=== PATIENT | female | born 1995 | race Caucasian/White ===

== ENCOUNTER 2018-05-06 00:20 | Outpatient (CLI) | payer BC, MEDICAID ==
[2018-05-06 01:12] LABS: ADD UMIC YES; UR ASCORBIC ACID NEGATIVE (NEGATIVE); UR BILIRUBIN (Dip) NEGATIVE (NEGATIVE); UR BLOOD (Dip) NEGATIVE (NEGATIVE); UR CLARITY CLOUDY (CLEAR); UR COLOR YELLOW (YELLOW); UR GLUCOSE (Dip) NEGATIVE (NEGATIVE); UR KETONES (Dip) NEGATIVE (NEGATIVE); UR LEUKOCYTE ESTERASE (Dip) 3+ Leu/ul (NEGATIVE); UR MUCUS FEW /HPF (NONE SEEN); UR NITRITE (Dip) NEGATIVE (NEGATIVE); UR RBC 1 /HPF (0-5); UR SPECIFIC GRAVITY (Dip) 1.011 (1.003-1.030); UR SQUAMOUS EPITHELIAL CELL FEW /HPF (FEW); UR TOTAL PROTEIN (Dip) NEGATIVE (NEGATIVE); UR UROBILINOGEN (Dip) 1+ mg/dL (NEGATIVE); UR WBC 14 /HPF (0-5)
[2018-05-06] MEDS: HYDROCODONE/APAP (5/325) TAB PO (01:51)
== END 2018-05-06 02:10 | disposition home or self-care (01) ==
LOC: OBT 00:20 → L-D 00:20 → OBT 02:10
DX: O26.893 Other specified pregnancy related conditions, third trimester (principal); Z3A.34 34 weeks gestation of pregnancy
CPT/HCPCS: 76818; 81001

== ENCOUNTER 2018-05-29 10:47 | Outpatient (CLI) | payer BC ==
[2018-05-29 11:59] LABS: UR AMORPHOUS CRYSTAL FEW /HPF (NONE SEEN); UR BACTERIA FEW /HPF (NONE SEEN); UR MUCUS FEW /HPF (NONE SEEN); UR RBC 2 /HPF (0-5); UR SQUAMOUS EPITHELIAL CELL FEW /HPF (FEW); UR WBC 4 /HPF (0-5)
[2018-05-29 12:14] LABS: ADD UMIC YES; UR ASCORBIC ACID NEGATIVE (NEGATIVE); UR BILIRUBIN (Dip) NEGATIVE (NEGATIVE); UR BLOOD (Dip) NEGATIVE (NEGATIVE); UR CLARITY CLOUDY (CLEAR); UR COLOR YELLOW (YELLOW); UR GLUCOSE (Dip) NEGATIVE (NEGATIVE); UR KETONES (Dip) NEGATIVE (NEGATIVE); UR LEUKOCYTE ESTERASE (Dip) TRACE Leu/ul (NEGATIVE); UR NITRITE (Dip) NEGATIVE (NEGATIVE); UR SPECIFIC GRAVITY (Dip) 1.015 (1.003-1.030); UR TOTAL PROTEIN (Dip) NEGATIVE (NEGATIVE); UR UROBILINOGEN (Dip) 2+ mg/dL (NEGATIVE)
== END 2018-05-29 12:40 | disposition home or self-care (01) ==
LOC: OBT 10:47 → L-D 10:47 → OBT 12:40
DX: O62.9 Abnormality of forces of labor, unspecified (principal); Z3A.37 37 weeks gestation of pregnancy
CPT/HCPCS: 76818; 81001

== ENCOUNTER 2018-06-18 22:26 | Inpatient (IN) | payer BC ==
[2018-06-19] MEDS ORDERED: MISOPROSTOL 200 MCG TAB PR ×2 (00:30→14:30)
[2018-06-19] MEDS ORDERED: CARBOPROST 250 MCG INJ IM ×2 (00:30→14:30)
[2018-06-19] MEDS ORDERED: IBUPROFEN 600 MG TAB PO (00:30)
[2018-06-19] MEDS ORDERED: METHYLERGONOVINE 0.2 MG INJ IM (00:30)
[2018-06-19] MEDS ORDERED: BUTORPHANOL 2 MG INJ IV (00:30)
[2018-06-19] MEDS ORDERED: OXYTOCIN 30 UNITS/LR 500 ML IV ×2 (00:30→14:30)
[2018-06-19] MEDS ORDERED: LIDOCAINE 1% (MPF) 30 ML INJ INJ (00:30)
[2018-06-19] MEDS: LACTATED RINGER'S 1,000 ML IV (01:25)
[2018-06-19] MEDS: AMPICILLIN 2 GM/NS (PMX) 100 ML IV (01:28)
[2018-06-19 02:22] LABS: ADD MAN DIFF? NO
[2018-06-19 02:24] LABS: BASOPHILS % 0.1 % (0.0-2.0); EOSINOPHILS # 0.1 10^3/ul (0.0-0.5); EOSINOPHILS % 1.1 % (0.0-7.0); HEMATOCRIT 31.4 % (37.0-47.0); HEMOGLOBIN 9.8 g/dl (12.0-16.0); LYMPHOCYTES # 1.6 10^3/ul (0.8-2.9); LYMPHOCYTES % 20.3 % (15.0-51.0); MEAN CORPUSCULAR HEMOGLOBIN 25.9 pg (29.0-33.0); MEAN CORPUSCULAR HGB CONC 31.2 g/dl (32.0-37.0); MEAN CORPUSCULAR VOLUME 82.8 fl (82.0-101.0); MEAN PLATELET VOLUME 10.3 fl (7.4-10.4); MONOCYTE # 0.7 10^3/ul (0.3-0.9); MONOCYTES % 9.1 % (0.0-11.0); NEUTROPHIL # 5.6 10^3/ul (1.6-7.5); PLATELET COUNT 263 10^3/UL (140-415); RED BLOOD COUNT 3.79 10^6/ul (4.20-5.40); RED CELL DISTRIBUTION WIDTH 13.9 % (11.5-14.5)
[2018-06-19 02:46] LABS: INR 0.99; PARTIAL THROMBOPLASTIN TIME 28.6 Sec (23.0-35.0); PROTIME 13.2 Sec (11.9-14.9)
[2018-06-19 03:06] LABS: AMPHETAMINE/METHAMPHETAMINE Negative (NEGATIVE); BARBITURATES Negative (NEGATIVE); BENZODIAZEPINES Negative (NEGATIVE); CANNABINOIDS Negative (NEGATIVE); COCAINE Negative (NEGATIVE); OPIATES Negative (NEGATIVE)
[2018-06-19 03:14] LABS: HEPATITIS B SURFACE ANTIGEN NEGATIVE (NEGATIVE)
[2018-06-19] MEDS: AMPICILLIN 1 GM/NS (PMX) 50 ML IV ×4 (05:18→15:36)
[2018-06-19] MEDS: OXYTOCIN 30 UNITS/LR 500 ML IV ×3 (05:20→18:57)
[2018-06-19] MEDS ORDERED: ZOLPIDEM 5 MG TAB PO (08:00)
[2018-06-19] MEDS ORDERED: NALOXONE (0.4 MG/ML) INJ IV (08:00)
[2018-06-19] MEDS ORDERED: HYDROmorphONE 0.5 MG/0.5 ML SYG IV ×2 (08:00)
[2018-06-19] MEDS ORDERED: DIPHENHYDRAMINE 50 MG INJ IV ×2 (08:00→14:30)
[2018-06-19] MEDS ORDERED: ONDANSETRON 4 MG INJ IV ×2 (08:00→14:30)
[2018-06-19] MEDS ORDERED: KETOROLAC 30 MG INJ IV (08:00)
[2018-06-19] MEDS ORDERED: FENTAnyl 2MCG/ML-ROPIV 0.2% 100 ML BAG EPI (08:00)
[2018-06-19] MEDS ORDERED: NA PHOSPHATE/BIPHOS 133 ML ENEMA PR (14:30)
[2018-06-19] MEDS ORDERED: DIPHENHYDRAMINE 25 MG CAP PO (14:30)
[2018-06-19] MEDS ORDERED: DIBUCAINE 1% 30 GM OINT TOP (14:30)
[2018-06-19] MEDS ORDERED: ONDANSETRON 4 MG TAB PO (14:30)
[2018-06-19] MEDS ORDERED: MAGNESIUM HYDROXIDE 30ML CUP PO (14:30)
[2018-06-19] MEDS ORDERED: SENNA/DOCUSATE NA (8.6MG/50MG) TAB PO (14:30)
[2018-06-19] MEDS: LACTATED RINGER'S 1,000 ML IV* (15:35)
[2018-06-19] MEDS: IBUPROFEN 600 MG TAB PO (17:12)
[2018-06-19] MEDS: BENZOCAINE 20% 56 ML SPRAY TOP (17:12)
[2018-06-19] MEDS: WITCH HAZEL/GLYCERIN PAD PR (17:13)
[2018-06-19] MEDS: LANOLIN HPA 1 PKT TOP (17:13)
[2018-06-19 19:44] LABS: RAPID PLASMA REAGIN NONREACTIVE (NR)
[2018-06-19] MEDS: HYDROCODONE/APAP (5/325) TAB PO (21:37)
[2018-06-19] MEDS: SENNA/DOCUSATE NA (8.6MG/50MG) TAB PO (21:37)
[2018-06-20] MEDS: IBUPROFEN 600 MG TAB PO ×4 (00:10→18:31)
[2018-06-20] MEDS: LACTATED RINGER'S 1,000 ML IV* ×4 (00:11→22:01)
[2018-06-20] MEDS: HYDROCODONE/APAP (5/325) TAB PO ×3 (00:32→20:59)
[2018-06-20 08:42] LABS: ADD MAN DIFF? NO
[2018-06-20 08:45] LABS: BASOPHILS % 0.1 % (0.0-2.0); EOSINOPHILS # 0.2 10^3/ul (0.0-0.5); EOSINOPHILS % 2.1 % (0.0-7.0); HEMATOCRIT 27.5 % (37.0-47.0); HEMOGLOBIN 8.5 g/dl (12.0-16.0); LYMPHOCYTES % 24.8 % (15.0-51.0); MEAN CORPUSCULAR HEMOGLOBIN 25.8 pg (29.0-33.0); MEAN CORPUSCULAR HGB CONC 30.9 g/dl (32.0-37.0); MEAN CORPUSCULAR VOLUME 83.3 fl (82.0-101.0); MEAN PLATELET VOLUME 9.8 fl (7.4-10.4); MONOCYTE # 0.7 10^3/ul (0.3-0.9); MONOCYTES % 8.5 % (0.0-11.0); NEUTROPHIL # 5.1 10^3/ul (1.6-7.5); NEUTROPHILS % 63.7 % (39.0-77.0); PLATELET COUNT 206 10^3/UL (140-415); RED CELL DISTRIBUTION WIDTH 13.8 % (11.5-14.5)
[2018-06-20] MEDS: SENNA/DOCUSATE NA (8.6MG/50MG) TAB PO ×2 (09:23→20:57)
[2018-06-21] MEDS: IBUPROFEN 600 MG TAB PO ×3 (00:07→11:41)
[2018-06-21] MEDS: LACTATED RINGER'S 1,000 ML IV* ×2 (08:32→12:44)
[2018-06-21] MEDS: VARICELLA VACCINE LIVE/PF 1,350 UNIT/0.5 ML ML SC* (09:00)
[2018-06-21] MEDS: SENNA/DOCUSATE NA (8.6MG/50MG) TAB PO (10:43)
[2018-06-21] MEDS: HYDROCODONE/APAP (5/325) TAB PO ×2 (10:43→14:28)
[2018-06-21] MEDS: DIPHTH/TET/ACEL PERTUSS (ADULT) 0.5 ML VIAL IM* (10:46)
[2018-06-21] MEDS: MEASLES,MUMPS,RUBELLA VACCINE INJ SC* (11:44)
== END 2018-06-21 16:15 | disposition home or self-care (01) | DRG 807 ==
LOC: OBT 22:26 → L-D 22:31 → PP1 06-19 15:19
PROVIDERS: Specialist
PROC: 10E0XZZ Delivery of Products of Conception, External Approach (ICD-10-PCS; principal; 2018-06-19)
PROC: 4A1HXCZ Monitoring of Products of Conception, Cardiac Rate, External Approach (ICD-10-PCS; 2018-06-19)
PROC: 3E0234Z Introduction of Serum, Toxoid and Vaccine into Muscle, Percutaneous Approach (ICD-10-PCS; 2018-06-21)
PROC: 3E0234Z Introduction of Serum, Toxoid and Vaccine into Muscle, Percutaneous Approach (ICD-10-PCS; 2018-06-21)
DX: O48.0 Post-term pregnancy (principal); Z37.0 Single live birth; O99.214 Obesity complicating childbirth; E66.01 Morbid (severe) obesity due to excess calories; Z3A.40 40 weeks gestation of pregnancy; Z23 Encounter for immunization
CPT/HCPCS: 62319; 76815; 76818; 80307; 85025; 85610; 85730; 86592; 86850; 86900; 86901; 87340; 90715; 90716